=== PATIENT | female | born 1990 | race Caucasian/White ===

== ENCOUNTER 2017-01-07 03:45 | Emergency (ER) | payer SELFPAY ==
[2017-01-07] MEDS ORDERED: LIDOCAINE 2% W/ EPINEPHRINE 20 ML VIAL INJ ONE (03:57)
[2017-01-07] MEDS ORDERED: NEOMYCIN-BACITRACIN-POLYMYXIN 0.9 GM UD TOP ONE (03:57)
[2017-01-07] MEDS ORDERED: CHLORHEXIDINE GLUCONATE 4 % 15 ML UD TOP ONE (03:58)
--- NOTE | 2017-01-07 04:00 | ED.PDOC ---
History of Present Illness - General Chief Complaint: Laceration Stated Complaint: cut leg on fence Time Seen by Provider: 01/07/17 03:51 Source: patient, RN notes reviewed, Vital Signs reviewed Exam Limitations: no limitations - History of Present Illness Initial Comments: Approximately 2 hours ago she was attempting to jump over a fence and caught her leg. She has a laceration on her L inner knee. Her boyfriend cleaned it with rubbing alcohol and placed one skin staple that he had left over from stapling dog wounds closed. + Etoh tonight. Denies other injury. Just wants laceration sewed up so she can go home. Timing/Duration: just prior to arrival Severity: moderate Location: extremities Improving Factors: nothing Worsening Factors: nothing Associated Symptoms: denies symptoms Allergies/Adverse Reactions: Allergies NO KNOWN ALLERGY Allergy (Verified 01/25/16 20:58) Home Medications: Ambulatory Orders Chlorhexidine Gluc 4% 15Ml [Hibiclens 15ml Unit Dose] 15 ml TOP DAILY #0 ud Sulfa/Trimeth 800/160 (Ds) Tab [Bactrim DS Tab] 1 ea PO BID #14 tab 01/28/16 Tramadol HCl 50 mg PO Q4HR #20 tab 01/28/16 Amoxicillin & Pot Clavulanate [Augmentin] 875 mg PO BID #14 tab 01/07/17 Review of Systems - Review of Systems Constitutional: States: no symptoms reported Respiratory: States: no symptoms reported Cardiology: States: no symptoms reported Musculoskeletal: States: joint pain - L knee Skin: States: see HPI Neurological: States: no symptoms reported All other Systems: No Change from Baseline Past Medical History (General) - Patient Medical History Hx Seizures: No Hx Stroke: No Hx Dementia: No Hx Asthma: No Hx of COPD: No Hx Cardiac Disorders: No Hx Congestive Heart Failure: No Hx Pacemaker: No Hx Hypertension: No Hx Thyroid Disease: No Hx Diabetes: No Hx Gastroesophageal Reflux: No Hx Renal Disease: No Hx Cancer: No Hx of HIV: No Hx Hepatitis C: No Hx MRSA: No - Vaccination History Hx Tetanus, Diphtheria Vaccination: Yes Hx Influenza Vaccination: Yes Hx Pneumococcal Vaccination: Yes - Social History Hx Tobacco Use: No Hx Chewing Tobacco Use: No Hx Alcohol Use: Yes - occ Hx Substance Use: No Hx Substance Use Treatment: No Hx Depression: No Hx Physical Abuse: No Hx Emotional Abuse: No Hx Suspected Abuse: No - Female History Hx Last Menstrual Period: 01/20/16 Patient : No Family Medical History - Family History Mother Family History: Unknown Physical Exam - Physical Exam General Appearance: Alert, Comfortable, No apparent distress, Well Developed, Well Groomed, Well Hydrated, Well Nourished, Other - appears intoxicated Respiratory: no respiratory distress Extremity: normal range of motion, other - Tender L medial, proximal tibia Neurologic: no motor/sensory deficits, alert, normal mood/affect, oriented x 3 Skin Exam: warm/dry, normal color Skin Problem Location: lower extremities - Inner aspect of her L knee Skin Character: linear - laceration with one staple in place. No active bleeding. 5.5cm in length, other - L inner thigh: large bruise with central abrasions. Procedures - Laceration/Wound Repair Left Medial Knee Wound Length (cm): 5.5 Wound's Depth, Shape: superficial, linear Wound Explored: no foreign body removed Irrigated w/ Saline (cc's): 100 Betadine Prep?: No - scrubbed with Hibiclens Anesthesia: Lidocaine w/ Epi Volume Anesthetic (cc's): 8 Wound Debrided: minimal Wound Repaired With: sutures Suture Size/Type: 3:0, prolene Number of Sutures: 7 Layer Closure?: No Sterile Dressing Applied?: Yes Splint Applied?: No Sling Applied?: No Departure - Departure Clinical Impression: Laceration of left knee without complication Qualifiers: Encounter type: initial encounter Qualified Code(s): S81.012A - Laceration without foreign body, left knee, initial encounter Time of Disposition: 04:33 Disposition: Discharge to Home or Self Care Condition: Good Departure Forms: ED Discharge - Pt. Copy, Patient Portal Self Enrollment Instructions: DI for Laceration Repair -- Simple Diet: resume usual diet Activity: increase activity as tolerated Referrals: Tiara Rojas NP [Primary Care Provider] - 1-2 Weeks Prescriptions: Amoxicillin & Pot Clavulanate [Augmentin] 875 mg PO BID #14 tab Home Medications: Ambulatory Orders Chlorhexidine Gluc 4% 15Ml [Hibiclens 15ml Unit Dose] 15 ml TOP DAILY #0 ud Sulfa/Trimeth 800/160 (Ds) Tab [Bactrim DS Tab] 1 ea PO BID #14 tab 01/28/16 Tramadol HCl 50 mg PO Q4HR #20 tab 01/28/16 Amoxicillin & Pot Clavulanate [Augmentin] 875 mg PO BID #14 tab 01/07/17 Additional Instructions: Keep laceration completely dry X 48 hours then ok to let water run over it but no soaking, scrubbing or swimming until sutures come out. Dress with antibiotic ointment twice daily Suture removal in 7-10 days.
[2017-01-07 04:10] VITALS: BP 112/74; O2SAT 97
== END 2017-01-07 04:45 | disposition home or self-care (01) ==
LOC: ER 03:45
DX: S81.012A Laceration without foreign body, left knee, initial encounter (principal); W22.8XXA Striking against or struck by other objects, initial encounter